=== PATIENT | male | born 1980 | race Two or more races ===

== ENCOUNTER 2022-09-08 18:30 | Emergency (ER) | payer MEDICAID, OTHER ==
[~2022-09-08] VITALS: Ht 188 cm; Wt 88.4 kg
[2022-09-08] MEDS ORDERED: HYDROcodone-ACET 10/325MG TAB PO ONE (20:30)
[2022-09-08] MEDS ORDERED: IBUP800T26 PO (21:41)
[2022-09-08] MEDS ORDERED: HYDR-4902 PO (21:41)
[2022-09-09 00:52] VITALS: BP 151/84
== END 2022-09-09 01:50 | disposition home or self-care (01) ==
LOC: ER 18:30
DX: S83.91XA Sprain of unspecified site of right knee, initial encounter (principal); X58.XXXA Exposure to other specified factors, initial encounter; Y93.67 Activity, basketball; Y92.89 Other specified places as the place of occurrence of the external cause; Y99.8 Other external cause status
CPT/HCPCS: 29505; 73562